=== PATIENT | male | born 1965 | race Two or more races ===

== ENCOUNTER → 2025-01-05 | Outpatient (CLI) | payer BC, SELFPAY ==
[2025-01-05 09:32] LABS: Basophils # (Auto) 0.1 Thou/mm3 (0.0-0.2); Basophils % (Auto) 1 % (0-2.5); Eosinophils # (Auto) 0.1 Thou/mm3 (0.0-0.5); Eosinophils % (Auto) 2 % (0-10); Hematocrit 36.8 % (41.0-53.0); Hemoglobin 12.9 g/dL (13.5-16.0); Immature Granulocytes % (Auto) 0 % (0-0); Immature Granulocytes Auto 0.02 Thou/mm3 (0.00-0.00); Lymphocytes # (Auto) 1.1 Thou/mm3 (1.0-4.8); Lymphocytes % (Auto) 18 % (10-50); Mean Corpuscular HGB Conc 35.1 g/dl (31.0-37.0); Mean Corpuscular Volume 89 fL (80-100); Monocytes # (Auto) 0.6 Thou/mm3 (0.0-0.8); Monocytes % (Auto) 9 % (0-12); Neutrophils # (Auto) 4.3 Thou/mm3 (1.8-7.7); Neutrophils % (Auto) 70 % (37-80); Nucleated Red Blood Cell % 0 /100 WBC (0); Platelet Count 198 Thou/mm3 (140-440); RDW Standard Deviation 42.7 fL (35.1-43.9); Red Blood Count 4.16 Miln/mm3 (4.50-5.90); White Blood Count 6.2 Thou/mm3 (3.8-10.6)
[2025-01-05 09:43] LABS: Collection Type, Urine Clean Catch
[2025-01-05 09:49] LABS: Prostate Specific Antigen 0.28 ng/mL (0-4.00)
[2025-01-05 10:05] LABS: Bilirubin,Urine Negative (Negative); Blood,Urine Negative (Negative); Clarity,Urine Clear (Clear/Hazy); Color,Urine Lt-Yellow (Lt Yel-Yel); Culture Indicated,Urine Not Indicated; Glucose, Urine Negative (Negative); Ketones,Urine Negative (Negative); Leukocyte Esterase,Urine Negative (Negative); Nitrite,Urine Negative (Negative); Protein,Urine Negative (Neg - Trace); RBC,Urine 1 /hpf (0-3); Specific Gravity,Urine 1.015 (1.001-1.035); Squamous Epithelial Cell,Urine < 1 /hpf (0-5); Urobilinogen,Urine Negative mg/dL (0.0-1.0); WBC,Urine < 1 /hpf (0-5)
[2025-01-05 10:09] LABS: Alanine Aminotransferase 18 U/L (10-49); Albumin, Serum 4.6 gm/dL (3.4-4.8); Albumin/Globulin Ratio 1.8 (1.2-2.2); Anion Gap 8 (7-16); Aspartate Amino Transferase 20 U/L (0-34); BUN/Creatinine Ratio 21 Ratio (12-20); Bilirubin,Total 0.3 mg/dL (0.3-1.2); Blood Urea Nitrogen 23 mg/dL (9-23); Calcium 9.7 mg/dL (8.3-10.6); Calcium (Corrected) 9.7 mg/dL (8.5-10.1); Carbon Dioxide 29.6 mMol/L (20.0-31.0); Cardiac Risk Estimate 5.6 RATIO (4.0-6.7); Chloride 101 mMol/L (98-107); Cholesterol 174 mg/dL (132-200); Creatinine (Component) 1.1 mg/dL (0.6-1.3); Globulin 2.5 gm/dL (2.3-3.5); Glucose 114 mg/dL (74-106); HDL Cholesterol 31 mg/dL (40-60); LDL Cholesterol,Calculated 102 mg/dL (0-130); Osmolality,Calculated 282 (275-295); Potassium 4.5 mMol/L (3.4-5.1); Sodium 139 mMol/L (136-145); Thyroid Stimulating Hormone 0.63 uIU/mL (0.55-4.78); Total Protein 7.1 gm/dL (5.7-8.2); Triglycerides 206 mg/dL (30-150); eGFR > 60 See Note
[2025-01-05 10:18] LABS: Creatinine MALB Rnd Ur 73 mg/dL (30-125); Microalbumin, Random Urine < 3 mg/L (0-300)
[2025-01-05 10:20] LABS: Alkaline Phosphatase 128 U/L (46-116)
== END | disposition home or self-care (01) ==
LOC: COPL 08:54
PROVIDERS: PCP Family Medicine; Referring Provider Family Medicine; Visit Provider Family Medicine
DX: Z00.00 Encounter for general adult medical examination without abnormal findings (principal); I10 Essential (primary) hypertension; N41.9 Inflammatory disease of prostate, unspecified; Z13.0 Encounter for screening for diseases of the blood and blood-forming organs and certain disorders involving the immune mechanism; Z13.29 Encounter for screening for other suspected endocrine disorder; Z13.21 Encounter for screening for nutritional disorder; Z13.220 Encounter for screening for lipoid disorders; Z13.1 Encounter for screening for diabetes mellitus
CPT/HCPCS: 36415; 80053; 80061; 81001; 82043; 82306; 82570; 84153; 84443; 85025

== ENCOUNTER → 2025-01-14 | Outpatient (CLI) | payer BC, SELFPAY ==
[2025-01-14 12:17] LABS: Glucose, 2 Hour PP 92 mg/dL (50-119)
== END | disposition home or self-care (01) ==
LOC: COPL 11:25
PROVIDERS: PCP Family Medicine; Referring Provider Family Medicine; Visit Provider Family Medicine
DX: R73.9 Hyperglycemia, unspecified (principal)
CPT/HCPCS: 36415; 82947

== ENCOUNTER 2025-02-10 06:25 | Day surgery (SDC) | payer BC, SELFPAY ==
--- NOTE | 2025-02-04 07:37 | EKG_ITS ---
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
[2025-02-04 10:22] VITALS: BMI 32.8
[2025-02-04 11:19] LABS: Basophils % (Auto) 1 % (0-2.5); Eosinophils # (Auto) 0.1 Thou/mm3 (0.0-0.5); Eosinophils % (Auto) 1 % (0-10); Hematocrit 36.5 % (41.0-53.0); Hemoglobin 12.6 g/dL (13.5-16.0); Immature Granulocytes % (Auto) 0 % (0-0); Immature Granulocytes Auto 0.02 Thou/mm3 (0.00-0.00); Lymphocytes # (Auto) 1.4 Thou/mm3 (1.0-4.8); Lymphocytes % (Auto) 21 % (10-50); Mean Corpuscular HGB Conc 34.5 g/dl (31.0-37.0); Mean Corpuscular Hemoglobin 30.4 pg (25.0-35.0); Mean Corpuscular Volume 88 fL (80-100); Monocytes # (Auto) 0.6 Thou/mm3 (0.0-0.8); Monocytes % (Auto) 9 % (0-12); Neutrophils # (Auto) 4.4 Thou/mm3 (1.8-7.7); Neutrophils % (Auto) 67 % (37-80); Nucleated Red Blood Cell % 0 /100 WBC (0); Platelet Count 205 Thou/mm3 (140-440); RDW Standard Deviation 42.2 fL (35.1-43.9); Red Blood Count 4.14 Miln/mm3 (4.50-5.90); White Blood Count 6.6 Thou/mm3 (3.8-10.6)
[2025-02-04 11:58] LABS: Alanine Aminotransferase 18 U/L (10-49); Albumin, Serum 4.5 gm/dL (3.4-4.8); Albumin/Globulin Ratio 1.6 (1.2-2.2); Alkaline Phosphatase 118 U/L (46-116); Anion Gap 9 (7-16); Aspartate Amino Transferase 20 U/L (0-34); BUN/Creatinine Ratio 18 Ratio (12-20); Bilirubin,Total 0.5 mg/dL (0.3-1.2); Blood Urea Nitrogen 20 mg/dL (9-23); Calcium 9.8 mg/dL (8.3-10.6); Calcium (Corrected) 9.8 mg/dL (8.5-10.1); Chloride 101 mMol/L (98-107); Creatinine (Component) 1.1 mg/dL (0.6-1.3); Estimated Creatinine Clearance 78.5 mL/min (>60); Globulin 2.8 gm/dL (2.3-3.5); Glucose 116 mg/dL (74-106); Osmolality,Calculated 279 (275-295); Potassium 4.2 mMol/L (3.4-5.1); Sodium 138 mMol/L (136-145); Total Protein 7.3 gm/dL (5.7-8.2); eGFR > 60 See Note
--- NOTE | 2025-02-09 14:27 | SUR.PREOP ---
Pt's notified to bring pt at 0630 for surgery tomorrow.
[2025-02-10] VITALS (8 sets, daily range): BP systolic 91–137; BP diastolic 53–84; PULSE 53–66; RESP 12–20; TEMP 36.7–37.2; O2SAT 95–100; BMI 33.2
--- NOTE | 2025-02-10 10:13 | SUR.PHASEI ---
1013: Pt. arrived with oral airway in place, vitals stable, breathing unlabored, no signs of distress, dressing to lower ABD CDI, no active bleed noted, report received from MD Acosta and Rahul PEREZ.
--- NOTE | 2025-02-10 10:17 | ESOP_ITS ---
Date of Procedure 02/10/25 Pre Op Diagnosis Bilateral inguinal hernia Post Op Diagnosis Bilateral direct inguinal hernias Procedure Repair of bilateral inguinal hernias with mesh Findings Patient was noted to have bilateral, direct inguinal hernias Procedure Description Patient brought into the operating room in supine position. After admi nistration of general endotracheal anesthesia, patient's bilateral groins were shaved, prepped and draped in standard surgical manner. The procedure started on the patient's right side first. The right inguinal crease was anesthetized with half percent Marcaine. An approximately 8 cm incision was made and dissection was carried to subcutaneous tissue. The Christopher's fascia was divided and the external oblique aponeurosis was opened towards the external ring. The hernia sac and the spermatic cord structures were from the posterior aspect of the external oblique aponeurosis at the level of pubic tubercle. The hernia sac was then meticulously dissected off the spermatic cord structures at the level of internal ring. Patient was noted to have direct right inguinal hernia defect. The defect was primarily closed with interrupted [id number] sutures using 0 Vicryl. The floor of inguinal canal was then reconstructed with ultra Pro proceed mesh. The mesh was secured with running 2-0 Prolene suture. The mesh secured medially to the pubic tubercle, superiorly into the conjoin tendon, inferiorly and to the shelving edge of inguinal ligament, the mesh was placed around the cord structures and tacked under the external oblique aponeurosis laterally. The area was copiously and thoroughly washed and irrigated, all the fluids were suctioned and the suction fluid returned clear. Hemostasis was adequate and satisfactory. External oblique aponeurosis was closed with running 2-0 Vicryl suture, and Christopher's fascia was closed with interrupted suture using 3-0 Vicryl. The incision was closed with 4-0 Monocryl in subcutaneous fashion. I then turned my attention to patient's left side. Patient was noted to have direct left inguinal hernia defect. The procedure was performed similar to the right. Both incisions were covered with Dermabond and then dry pressure dressings. Instruments, needles and sponge counts were reported to be correct ?2. Patient tolerated the procedure well. He was extubated, breathing spontaneously and without difficulty and was transferred to postanesthesia care in stable condition. Anesthesia GETA and local Pathology / specimen None Estimated Blood Loss 15 Condition Stable Disposition PACU Surgeon Villa Griffin MD Surgical Staff Operation Date: 02/10/25 08:30 Case Staff Anesthesiologist: Lexx Acosta RN First Assistant: Sil Vaughn
[2025-02-10] MEDS: ACETAMINOPHEN IVPB 1,000 MG/100 ML VIAL 250 MG IV (10:31)
[2025-02-10] MEDS: fentaNYL CIT INJ 50 mCg/ML AMP 2ML 25 MCG IV (10:31)
[2025-02-10] MEDS: HYDROmorphone INJ 2 MG/ML VIAL 0.4 MG IV ×3 (10:41→10:54)
--- NOTE | 2025-02-10 11:15 | SUR.PHASEII ---
1115: Pt. AAOx4, vitals stable, breathing unlabored, no complaint of pain or nausea, dressing to lower ABD CDI, ABD Binder in place, pt. tolerated sips of water well, pt. ambulated to wheelchair with steady gait and no assist, no complications. Pt. tolerated sips of water well, pt. ambulated to wheelchair with steady gait and no assist, no complications. Gave discharge instructions to the pt. and her ride, both verbalized understanding and had no further questions. Pt. left with all personal belongings.
== END 2025-02-10 11:15 | disposition home or self-care (01) ==
PROVIDERS: Anesthesiology; PCP Family Medicine; Referring Provider Surgery; Visit Provider Surgery
PROC: (CPT 49505; principal; 2025-02-10 08:30)
DX: K40.20 Bilateral inguinal hernia, without obstruction or gangrene, not specified as recurrent (principal); Z01.810 Encounter for preprocedural cardiovascular examination
CPT/HCPCS: 49505; 36415; 80053; 85025; 93005; A4217; A4649; C1781; J0131; J0690; J1100; J1885; J2250; J2405; J2704; J3010; J3490

== ENCOUNTER → 2025-07-25 | Outpatient (CLI) | payer BC, SELFPAY ==
[2025-07-25 10:56] LABS: Basophils # (Auto) 0.1 Thou/mm3 (0.0-0.2); Basophils % (Auto) 1 % (0-2.5); Eosinophils # (Auto) 0.1 Thou/mm3 (0.0-0.5); Eosinophils % (Auto) 2 % (0-10); Hematocrit 36.2 % (41.0-53.0); Hemoglobin 11.9 g/dL (13.5-16.0); Immature Granulocytes Auto 0.02 Thou/mm3 (0.00-0.00); Lymphocytes # (Auto) 1.1 Thou/mm3 (1.0-4.8); Lymphocytes % (Auto) 17 % (10-50); Mean Corpuscular HGB Conc 32.9 g/dl (31.0-37.0); Mean Corpuscular Hemoglobin 27.9 pg (25.0-35.0); Mean Corpuscular Volume 85 fL (80-100); Monocytes # (Auto) 0.5 Thou/mm3 (0.0-0.8); Monocytes % (Auto) 8 % (0-12); Neutrophils # (Auto) 4.5 Thou/mm3 (1.8-7.7); Neutrophils % (Auto) 72 % (37-80); Nucleated Red Blood Cell # 0.00 Thou/mm3 (0.00-0.00); Nucleated Red Blood Cell % 0 /100 WBC (0); Platelet Count 265 Thou/mm3 (140-440); RDW Standard Deviation 43.8 fL (35.1-43.9); Red Blood Count 4.27 Miln/mm3 (4.50-5.90); White Blood Count 6.2 Thou/mm3 (3.8-10.6)
[2025-07-25 11:04] LABS: INR 1.0 (0.9-1.3); Partial Thromboplastin Time 22.8 Seconds (22.0-36.0); Prothrombin Time 11.0 Seconds (9.0-12.2)
== END | disposition home or self-care (01) ==
LOC: COPL 09:56
PROVIDERS: PCP Family Medicine; Referring Provider Internal Medicine Gastroenterology; Visit Provider Internal Medicine Gastroenterology
DX: R10.9 Unspecified abdominal pain (principal)
CPT/HCPCS: 36415; 85025; 85610; 85730

== ENCOUNTER → 2025-08-26 | Outpatient (CLI) | payer BC, SELFPAY ==
[2025-08-26 09:33] LABS: Basophils # (Auto) 0.0 Thou/mm3 (0.0-0.2); Basophils % (Auto) 0 % (0-2.5); Eosinophils # (Auto) 0.1 Thou/mm3 (0.0-0.5); Eosinophils % (Auto) 1 % (0-10); Hematocrit 37.4 % (41.0-53.0); Hemoglobin 12.3 g/dL (13.5-16.0); Immature Granulocytes Auto 0.02 Thou/mm3 (0.00-0.00); Lymphocytes # (Auto) 0.8 Thou/mm3 (1.0-4.8); Lymphocytes % (Auto) 11 % (10-50); Mean Corpuscular HGB Conc 32.9 g/dl (31.0-37.0); Mean Corpuscular Hemoglobin 27.5 pg (25.0-35.0); Mean Corpuscular Volume 84 fL (80-100); Monocytes # (Auto) 0.6 Thou/mm3 (0.0-0.8); Monocytes % (Auto) 8 % (0-12); Neutrophils # (Auto) 6.2 Thou/mm3 (1.8-7.7); Neutrophils % (Auto) 80 % (37-80); Nucleated Red Blood Cell # 0.00 Thou/mm3 (0.00-0.00); Nucleated Red Blood Cell % 0 /100 WBC (0); Platelet Count 344 Thou/mm3 (140-440); RDW Standard Deviation 41.8 fL (35.1-43.9); Red Blood Count 4.48 Miln/mm3 (4.50-5.90); White Blood Count 7.8 Thou/mm3 (3.8-10.6)
[2025-08-26 09:56] LABS: INR 1.1 (0.9-1.3); Partial Thromboplastin Time 25.2 Seconds (22.0-36.0); Prothrombin Time 11.4 Seconds (9.0-12.2)
[2025-08-26 10:09] LABS: Alanine Aminotransferase 9 U/L (10-49); Albumin, Serum 4.5 gm/dL (3.4-4.8); Albumin/Globulin Ratio 1.7 (1.2-2.2); Alkaline Phosphatase 98 U/L (46-116); Amylase 58 U/L (30-118); Anion Gap 11 (7-16); Aspartate Amino Transferase 18 U/L (0-34); BUN/Creatinine Ratio 13 Ratio (12-20); Bilirubin,Total 0.7 mg/dL (0.3-1.2); Blood Urea Nitrogen 22 mg/dL (9-23); Calcium 9.5 mg/dL (8.3-10.6); Calcium (Corrected) 9.5 mg/dL (8.5-10.1); Carbon Dioxide 28.3 mMol/L (20.0-31.0); Chloride 99 mMol/L (98-107); Creatinine (Component) 1.7 mg/dL (0.6-1.3); Globulin 2.6 gm/dL (2.3-3.5); Glucose 121 mg/dL (74-106); Lipase 19 U/L (12-53); Osmolality,Calculated 279 (275-295); Potassium 4.5 mMol/L (3.4-5.1); Sodium 138 mMol/L (136-145); Total Protein 7.1 gm/dL (5.7-8.2); eGFR 45 See Note
== END | disposition home or self-care (01) ==
LOC: COPL 09:04
PROVIDERS: PCP Family Medicine; Referring Provider Internal Medicine Gastroenterology; Visit Provider Internal Medicine Gastroenterology
DX: R10.9 Unspecified abdominal pain (principal)
CPT/HCPCS: 36415; 80053; 82150; 83690; 85025; 85610; 85730

== ENCOUNTER → 2025-08-29 | Outpatient (CLI) | payer BC, SELFPAY ==
[2025-08-29 10:21] LABS: Misc Send Out* See Sep Rpt
[2025-08-29 11:46] LABS: Carcinoembryonic Antigen 1.2 ng/mL (0.0-5.0)
== END | disposition home or self-care (01) ==
LOC: COPL 09:49
PROVIDERS: PCP Family Medicine; Referring Provider Internal Medicine Gastroenterology; Visit Provider Internal Medicine Gastroenterology
DX: R10.9 Unspecified abdominal pain (principal); R97.0 Elevated carcinoembryonic antigen [CEA]; R97.8 Other abnormal tumor markers
CPT/HCPCS: 36415; 82378

== ENCOUNTER → 2025-08-30 | Outpatient (CLI) | payer BC, SELFPAY ==
[2025-08-30 09:50] LABS: Misc Send Out* See Sep Rpt
== END | disposition home or self-care (01) ==
LOC: SLDO 09:39
PROVIDERS: Referring Provider Internal Medicine Gastroenterology; Visit Provider Internal Medicine Gastroenterology
DX: R10.9 Unspecified abdominal pain (principal); R97.8 Other abnormal tumor markers; R97.0 Elevated carcinoembryonic antigen [CEA]
CPT/HCPCS: 83497

== ENCOUNTER → 2025-09-06 | Outpatient (CLI) | payer BC, SELFPAY ==
[2025-09-06 13:51] LABS: Misc Send Out* See Sep Rpt
== END | disposition home or self-care (01) ==
LOC: COPL 13:32
PROVIDERS: PCP Family Medicine; Referring Provider Internal Medicine Gastroenterology; Visit Provider Internal Medicine Gastroenterology
DX: R10.9 Unspecified abdominal pain (principal)
CPT/HCPCS: 86316

== ENCOUNTER → 2025-09-07 | Outpatient (CLI) | payer BC, SELFPAY ==
[2025-09-12 07:00] LABS: CA 19-9 Antigen* 60 U/mL (<34)
== END | disposition home or self-care (01) ==
PROVIDERS: PCP Family Medicine; Referring Provider Internal Medicine Gastroenterology; Visit Provider Internal Medicine Gastroenterology
DX: R10.9 Unspecified abdominal pain (principal); R97.8 Other abnormal tumor markers
CPT/HCPCS: 36415; 86301

== ENCOUNTER → 2025-09-09 | Outpatient (CLI) | payer BC, SELFPAY ==
[2025-09-09 15:43] LABS: Misc Send Out* See Sep Rpt
== END | disposition home or self-care (01) ==
LOC: SLDO 15:36
PROVIDERS: PCP Internal Medicine Gastroenterology; Referring Provider Internal Medicine Gastroenterology; Visit Provider Internal Medicine Gastroenterology
DX: R10.9 Unspecified abdominal pain (principal)
CPT/HCPCS: 83497

== ENCOUNTER 2025-10-17 12:16 | Emergency (ER) | payer BC, SELFPAY ==
[2025-10-17] VITALS (7 sets, daily range): BP systolic 82–102; BP diastolic 63–69; PULSE 57–72; RESP 12–20; TEMP 35.6–36.4; O2SAT 95–99; BMI 25.7
--- NOTE | 2025-10-17 12:44 | EKG_ITS ---
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
--- NOTE | 2025-10-17 12:54 | EDNOTE_ITS ---
ED Abdominal Pain RME/HPI General Chief Complaint: Abdominal Pain Stated complaint: ABD PAIN Time seen by provider: 10/17/25 12:47 Arrival date/time: 10/17/25 12:16 RME / HPI RME / HPI narrative: 60 year old male with history of hypertension, s/p pancreas biopsy on 09/28/2025, and diagnosed with pancreatic cancer on 10/12/[address] Cool at [facility] presents to the ED BIBA from home for evaluation of abdominal pain today. States the pain began 2 week ago though worsening in severity today. Described as aching in sensation that is located diffusely, rating 10/10 in severity. Reportedly attempted taking [place] at home that was prescribed by his oncologist that he shortly after vomited. States his pain is accompanied by nausea, vomiting, and decreased appetite. Denies fevers, chills, sweats, or urinary symptoms. Dr. Cool at [facility] and [facility] Related Data Home Medications ?Medication ?Instructions ?Recorded ?Confirmed amlodipine 10 mg tablet 10 mg PO DAILY 02/04/2501/09 hydrochlorothiazide 25 mg tablet 25 mg PO QAM 02/04/25 02/04/25 metoprolol succinate 200 mg 200 mg PO DAILY 02/04/25 0 02/04/25 tablet,extended release 24 hr Previous Rx's ?Medication ?Instructions ?Recorded docusate sodium 100 mg capsule 100 mg PO BID #60 caps 02/10/25 (Colace) hydrocodone 5 mg-acetaminophen 325 1 tab PO Q6H PRN pa in (scale score 02/10/25 mg tablet 7-10) #30 tabs hydromorphone 2 mg tablet 2 mg PO Q4H PRN pain #30 tab s 10/17/25 (Dilaudid) metoclopramide HCl 10 mg tablet 10 mg PO Q6H PRN nause a and 10/17/25 (Reglan) vomiting #20 tabs Allergies Allergy/AdvReac Type Severity Reaction Status Date / Time ibuprofen Allergy Vomiting Verified 10/17/25 12:24 Penicillins Allergy Anxiety Verified 10/17/25 12:24 Review of Systems Review of Systems Systems Reviewed: All systems reviewed, normal except as documented Past Medical History Past Medical History CARDIAC: Positive Cardiac Disorders and Hypertension GASTROINTESTINAL: Positive Gastrointestinal Disorders and Obesity GENITOURINARY: Positive Inguinal Hernia HEMATOLOGIC: Positive Blood Disorders and Anemia OTHER HISTORY: Positive Shingles and Chicken Pox Family History FAMILY HISTORY: Positive Family Cardiac Disorders Surgical History SURGICAL: Positive Tonsillectomy Social History SMOKING STATUS: Never smoker ED Exam Narrative Physical exam: Generally patient is alert in moderate distress secondary to abdominal pain, heart regular rate and rhythm, lungs clear to auscultation equal bilaterally, abdomen is distended nontympanic with guarding and diffusely tender without obvious rebound, extremities show no edema, neurologic exam shows [place] Coma Scale 15 without focal motor deficit Course Quality Measures none Orders Category Date Time Status CT Screening NOW Care 10/17/25 12:55 Active Cardiac Cath Technician Q4H START 00 Care 10/17/25 12:25 Active EKG (ED ONLY) *Do not use* NOW Care 10/17/25 12:44 Completed IV [Insert IV] NOW Care 10/17/25 12:[address] abdomen pelvis wo con Stat Exams 10/17/25 13:38 Completed EKG (ED Only) Stat Exams 10/17/25 12:44 Draft CBC Stat Lab 10/17/25 12:48 Completed CMP [Comprehensive Metabolic Panel] Stat Lab 10/17/25 12:48 Completed Lipase Stat Lab 10/17/25 12:48 Completed Urinalysis Stat Lab 10/17/25 15:36 Completed Urine Culture Stat Lab 10/17/25 15:36 Received HYDROmorphone INJ [Dilaudid Inj] Med 10/17/25 12:55 Discontinued 1 mg IVP X1 ONE HYDROmorphone INJ [Dilaudid Inj] Med 10/17/25 14:30 Discontinued 1 mg IVP X1 ONE Sodium Chloride 0.9% 1000 ml [Ns] 1,000 ml Med 10/17/25 13:10 Discontinued IV 999 mls/hr Sodium Chloride 0.9% 1000 ml [Ns] 1,000 ml Med 10/17/25 13:18 Discontinued IV 999 mls/hr Sodium Chloride 0.9% 1000 ml [Ns] 1,000 ml Med 10/17/25 13:38 Discontinued IV 999 mls/hr Vital Signs Vital signs: Vital Signs Pulse Rate 68 10/17/25 12:18 Respiratory Rate 14 10/17/25 12:18 Blood Pressure 93/63 10/17/25 12:18 Pulse Oximetry (%) 96 10/17/25 12:18 Oxygen Delivery Method Room Air 10/17/25 12:18 Pulse ox is 96% on room air which is adequate. Abdominal Pain MDM MDM Narrative MDM Narrative:: Velia Grimaldo am scribing for and in the presence of Dr. Gonsales. Patient is dehydrated with renal insufficiency. There is no electrolyte abnormality. Patient was hydrated with 3 L of IV normal saline. Pain was controlled with Dilaudid 1 mg IV x 2 here in the emergency room. Patient has been using hydroxy codon at home for pain without benefit. He has had marked benefit with Dilaudid. The biopsy of the pancreas was [address] scan done of the abdomen pelvis without contrast because of the renal insufficiency showed no obstruction but did show ascites and bilateral pleural effusions left side greater than right. Patient has an appointment with his oncologist in 4 days. He is to take the Dilaudid and Reglan as prescribed. Encourage hydration. Return to ER as needed or if condition worsens. Vital signs are completely stable at time of discharge. Plan was discussed with the patient and family member at bedside and agreeable to all parties. Patient data External records reviewed:: [facility] previous records and EMS form Clinical information provided by:: patient and EMS Social determinants that could affect healthcare access:: none Patient has the following chronic illnesses:: hypertension, s/p pancreas biopsy on 09/28/2025, and diagnosed with pancreatic cancer on 10/12/[address] Cool at [facility] How is presenting disease/condition affected by chronic disease/condition?: exacerbated by Evaluation data The following diagnostics were reviewed and interpreted by me:: lab results and radiology exam(s) Lab and/or radiology exams considered but not ordered:: None Interpretation Summary: Ordering Physician: Josep Gonsales DO Date of Service: 10/17/25 Procedure(s): CT abdomen pelvis wo con Accession Number(s): [id number] cc: Alessio Todd MD; Josep Gonsales DO~ Examination: CT abdomen and pelvis without contrast. Coronal 3-D reconstructions. Sagittal 2-D reconstructions. Date and time of exam: October 17, 2025, 1508 hours INDICATIONS: Generalized abdominal pain today CTDI: vol (mGy): 7.89 DLP: (mGycm): 496 Technique: Axial images of the abdomen have been obtained, 3 mm slice thickness Intravenous contrast material has not been administered. Low dose protocols were performed. One or more of the following dose reduction techniques were used; automated exposure control, adjustment of the mA and/or KV according to patient size, use of iterative reconstruction technique. Findings: Large left mild right pleural fluid Atelectasis and/or pneumonia left base Cirrhosis, liver nodular in contour Significant ascites Hyperdense gallbladder Spleen is not enlarged Suspicious for esophageal varices on this noncontrast study No pancreatic mass No renal or ureteral calculi, no hydronephrosis Aorta normal size No bowel obstruction Urinary bladder intact Mild prostatomegaly Advanced disc narrowing L5-S1 IMPRESSION: Large left mild right pleural fluid Atelectasis versus pneumonia left base Cirrhosis Hyperdense gallbladder, recommend gallbladder sonography follow-up Suspicious for esophageal varices on this noncontrast study Significant ascites Dictated By: Alessio Todd MD Signed By: <Electronically signed by Alessio Todd MD in OV> 10/17/25 1523 Medications / Prescriptions Medications or Prescriptions considered but not ordered:: None Medication administrations:: Medication Administration History Discontinued Medications Hydromorphone HCl (Hydromorphone Inj 2 Mg/Ml Vial) 1 mg IVP X1 ONE Stop: 10/17/25 12:56 Last Admin: 10/17/25 13:13 Dose: 1 mg Documented By: TRUPTI Hydromorphone HCl (Hydromorphone Inj 2 Mg/Ml Vial) 1 mg IVP X1 ONE Stop: 10/17/25 14:31 Last Admin: 10/17/25 14:48 Dose: 1 mg Documented By: TRUPTI Sodium Chloride (Ns) 1,000 mls @ 999 mls/hr IV .Q1H1M ONE Stop: 10/17/25 14:10 Last Infusion: 10/17/25 13:55 Dose: Infused Documented By: Admin: 10/17/25 13:15 Dose: 999 mls/hr Documented By: TRUPTI Sodium Chloride (Ns) 1,000 mls @ 999 mls/hr IV .Q1H1M ONE Stop: 10/17/25 14:18 Last Infusion: 10/17/25 15:22 Dose: Infused Documented By: Admin: 10/17/25 13:57 Dose: 999 mls/hr Documented By: ARTURO Sodium Chloride (Ns) 1,000 mls @ 999 mls/hr IV .Q1H1M ONE Stop: 10/17/25 14:38 Last Infusion: 10/17/25 15:22 Dose: Infused Documented By: Admin: 10/17/25 13:56 Dose: 999 mls/hr Documented By: ARTURO See above Consultations Consultation(s) initiated? (list below): No Diagnosis Differential diagnosis abdominal pain: abdominal pain, pancreatitis, small bowel obstruction and other (pancreatic cancer ) Most likely diagnosis given after review of the tests above:: None Admission Indicated Admission indicated?: not indicated Admission Request Was there a request for admission?: No Disposition Plan Disposition Plan: Discharge Discharge Attestation Discharge Attestation: The patient and all family members were given an opportunity to ask questions and understood the discharge instructions. Discharge instructions specifically effects, indications for sooner follow up or return to the emergency department, and the expected course of current diagnosis. Patient condition: Stable Discharge Plan Plan Patient Disposition: HOME (Self Care) Prescriptions/Referrals Prescriptions/Med Rec: New hydromorphone [Dilaudid] 2 mg tablet 2 mg PO Q4H MDD 6 PRN (Reason: pain) Qty: 30 0RF metoclopramide HCl [Reglan] 10 mg tablet 10 mg PO Q6H PRN (Reason: nausea and vomiting) Qty: 20 0RF No Action amlodipine 10 mg tablet 10 mg PO DAILY metoprolol succinate 200 mg tablet extended release 24 hr 200 mg PO DAILY hydrochlorothiazide 25 mg tablet 25 mg PO QAM docusate sodium [Colace] 100 mg capsule 100 mg PO BID Qty: 60 0RF hydrocodone-acetaminophen 5-325 mg tablet 1 tab PO Q6H MDD 4 PRN (Reason: pain (scale score 7-10)) Qty: 30 0RF Referrals: Rc (PCP)Enrico MD [Primary Care Provider, Family Practice] - In 1 week Problem List Clinical Impression: Abdominal pain, Acute renal insufficiency Patient/Caregiver Discharge Instructions Education Materials: Abdominal Pain Additional Instructions: Stop your current pain medication. Take the medication as prescribed. Keep your follow-up appointment with your oncologist in 4 days. Return to ER as needed or if condition worsens. Encourage hydration. Print Language: Mohawk Stand Alone Forms: Mary Award Info., Patient Portal Info Letter
[2025-10-17 13:05] LABS: Basophils # (Auto) 0.0 Thou/mm3 (0.0-0.2); Basophils % (Auto) 0 % (0-2.5); Eosinophils # (Auto) 0.0 Thou/mm3 (0.0-0.5); Eosinophils % (Auto) 0 % (0-10); Hematocrit 34.7 % (41.0-53.0); Hemoglobin 11.6 g/dL (13.5-16.0); Immature Granulocytes Auto 0.01 Thou/mm3 (0.00-0.00); Lymphocytes # (Auto) 1.0 Thou/mm3 (1.0-4.8); Lymphocytes % (Auto) 13 % (10-50); Mean Corpuscular HGB Conc 33.4 g/dl (31.0-37.0); Mean Corpuscular Hemoglobin 26.9 pg (25.0-35.0); Mean Corpuscular Volume 81 fL (80-100); Monocytes # (Auto) 0.6 Thou/mm3 (0.0-0.8); Monocytes % (Auto) 8 % (0-12); Neutrophils # (Auto) 5.8 Thou/mm3 (1.8-7.7); Neutrophils % (Auto) 78 % (37-80); Nucleated Red Blood Cell # 0.00 Thou/mm3 (0.00-0.00); Nucleated Red Blood Cell % 0 /100 WBC (0); Platelet Count 353 Thou/mm3 (140-440); RDW Standard Deviation 41.1 fL (35.1-43.9); Red Blood Count 4.31 Miln/mm3 (4.50-5.90); White Blood Count 7.5 Thou/mm3 (3.8-10.6)
[2025-10-17] MEDS: HYDROmorphone INJ 2 MG/ML VIAL 1 MG IVP ×2 (13:13→14:48)
[2025-10-17] MEDS: SODIUM CHLORIDE 0.9% 1000 ML 1,000 ML 999 ML IV ×3 (13:15→13:57)
[2025-10-17 13:25] LABS: Alanine Aminotransferase 10 U/L (10-49); Albumin, Serum 3.6 gm/dL (3.4-4.8); Albumin/Globulin Ratio 1.4 (1.2-2.2); Alkaline Phosphatase 81 U/L (46-116); Anion Gap 13 (7-16); Aspartate Amino Transferase 15 U/L (0-34); BUN/Creatinine Ratio 25 Ratio (12-20); Bilirubin,Total 0.3 mg/dL (0.3-1.2); Blood Urea Nitrogen 57 mg/dL (9-23); Calcium 8.7 mg/dL (8.3-10.6); Calcium (Corrected) 9.0 mg/dL (8.5-10.1); Carbon Dioxide 24.2 mMol/L (20.0-31.0); Chloride 99 mMol/L (98-107); Creatinine (Component) 2.3 mg/dL (0.6-1.3); Estimated Creatinine Clearance 32.6 mL/min (>60); Globulin 2.6 gm/dL (2.3-3.5); Glucose 137 mg/dL (74-106); Lipase 25 U/L (12-53); Osmolality,Calculated 289 (275-295); Potassium 3.8 mMol/L (3.4-5.1); Sodium 136 mMol/L (136-145); Total Protein 6.2 gm/dL (5.7-8.2); eGFR 32 See Note
--- NOTE | 2025-10-17 13:38 | XR_ITS ---
Examination: CT abdomen and pelvis without contrast. Coronal 3-D reconstructions. Sagittal 2-D reconstructions. Date and time of exam: October 17, 2025, 1508 hours INDICATIONS: Generalized abdominal pain today CTDI: vol (mGy): 7.89 DLP: (mGycm): 496 Technique: Axial images of the abdomen have been obtained, 3 mm slice thickness Intravenous contrast material has not been administered. Low dose protocols were performed. One or more of the following dose reduction techniques were used; automated exposure control, adjustment of the mA and/or KV according to patient size, use of iterative reconstruction technique. Findings: Large left mild right pleural fluid Atelectasis and/or pneumonia left base Cirrhosis, liver nodular in contour Significant ascites Hyperdense gallbladder Spleen is not enlarged Suspicious for esophageal varices on this noncontrast study No pancreatic mass No renal or ureteral calculi, no hydronephrosis Aorta normal size No bowel obstruction Urinary bladder intact Mild prostatomegaly Advanced disc narrowing L5-S1 IMPRESSION: Large left mild right pleural fluid Atelectasis versus pneumonia left base Cirrhosis Hyperdense gallbladder, recommend gallbladder sonography follow-up Suspicious for esophageal varices on this noncontrast study Significant ascites
[2025-10-17 15:44] LABS: Collection Type, Urine Clean Catch; Squamous Epithelial Cell,Urine 0 /hpf (0-5)
[2025-10-17 15:49] LABS: Bilirubin,Urine Negative (Negative); Blood,Urine Negative (Negative); Clarity,Urine Clear (Clear/Hazy); Color,Urine Lt-Yellow (Lt Yel-Yel); Glucose, Urine Negative (Negative); Hyaline Casts,Urine < 1 /hpf (0-1); Ketones,Urine Negative (Negative); Leukocyte Esterase,Urine Negative (Negative); Nitrite,Urine Negative (Negative); PH,Urine 5.5 (5.0-7.0); Protein,Urine Negative (Neg - Trace); RBC,Urine < 1 /hpf (0-3); Specific Gravity,Urine 1.016 (1.001-1.035); Urobilinogen,Urine Negative mg/dL (0.0-1.0); WBC,Urine 1 /hpf (0-5)
== END 2025-10-17 16:39 | disposition home or self-care (01) ==
PROVIDERS: Emergency Provider Emergency Medicine; PCP Family Medicine
DX: N28.9 Disorder of kidney and ureter, unspecified (principal); E86.0 Dehydration; K74.60 Unspecified cirrhosis of liver; R18.8 Other ascites; J94.8 Other specified pleural conditions; I10 Essential (primary) hypertension
CPT/HCPCS: 36415; 74176; 80053; 81001; 83690; 84484; 85025; 87086; 93005; 96361; 96374; 96375; 99284; J1171; J7030

== ENCOUNTER 2025-11-07 11:18 | Emergency (ER) | payer BC, SELFPAY ==
[2025-11-07 11:30] VITALS: PULSE 111; RESP 24; BMI 23.0
[2025-11-07 11:37] VITALS: BP 150/112; PULSE 98; RESP 21; TEMP 36.6; O2SAT 97
--- NOTE | 2025-11-07 12:00 | XR_ITS ---
Study: AP upright chest at 1212 hours 07 November 2025 INDICATION: 3 days of coughing. FINDINGS: There is a moderately large left pleural effusion. No left-sided or right-sided alveolar infiltrates are seen. The right pleural space is dry. There are no nodules or masses. The heart is normal in size and contour. The aortic knob is prominent. Peripheral vasculature is normal in volume. IMPRESSION: Prominent left pleural effusion.
--- NOTE | 2025-11-07 12:00 | EKG_ITS ---
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
[2025-11-07] MEDS: HYDROmorphone INJ 2 MG/ML VIAL 1 MG IVP ×2 (12:11→15:29)
[2025-11-07] MEDS: ONDANSETRON INJ 2 MG/ML INJ 2 ML 4 MG IVP ×2 (12:12→15:31)
[2025-11-07] MEDS: SODIUM CHLORIDE 0.9% 1000 ML 1,000 ML 999 ML IV (12:14)
[2025-11-07 12:15] VITALS: BP 159/105; PULSE 102; PULSE 108; PULSE 111; RESP 20; RESP 99; TEMP 36.6; O2SAT 98
--- NOTE | 2025-11-07 12:19 | PD.EDABDPN ---
ED Abdominal Pain RME/HPI General Chief Complaint: Abdominal Pain Stated complaint: ABD PAIN Time seen by provider: 11/07/25 11:25 Arrival date/time: 11/07/25 11:18 Limitations: no limitations RME / HPI RME / HPI narrative: 60 year old male with history of hypertension, s/p pancreas biopsy on 09/28/2025, and diagnosed with pancreatic cancer on 10/12/[address] Cool at [facility], presents to the ED BIBA from home for evaluation of abdominal pain today. Patient reports his pain is located throughout, rating 10/10 in severity. Accompanied by nausea and vomiting. Patient reports he has been prescribed Morphine for home and attempted to take a dose today which he did not tolerate. Per medics, patient was given 4mg Zofran with some improvement though on arrival is still complaining of feeling nauseated. No other associated symptoms reported. Related Data Home Medications ?Medication ?Instructions ?Recorded ?Confirmed amlodipine 10 mg tablet 10 mg PO DAILY 02/04/25 02/04/25 hydrochlorothiazide 25 mg tablet 25 mg PO QAM 02/04/25 02/04/25 metoprolol succinate 200 mg 200 mg PO DAILY 02/04/25 02/04/25 tablet,extended release 24 hr Previous Rx's ?Medication ?Instructions ?Recorded docusate sodium 100 mg capsule 100 mg PO BID #60 caps 02/10/25 (Colace) hydrocodone 5 mg-acetaminophen 325 1 tab PO Q6H PRN pain (scale score 02/10/25 mg tablet 7-10) #30 tabs hydromorphone 2 mg tablet 2 mg PO Q4H PRN pain #30 tabs 10/17/25 (Dilaudid) metoclopramide HCl 10 mg tablet 10 mg PO Q6H PRN nausea and 10/17/25 (Reglan) vomiting #20 tabs hydromorphone 2 mg tablet 2 mg PO Q6H PAIN #20 tabs 11/07/25 (Dilaudid) ondansetron HCl 4 mg tablet 4 mg PO Q8H 5 days #15 tabs 11/07/25 Allergies Allergy/AdvReac Type Severity Reaction Status Date / Time ibuprofen Allergy Vomiting Verified 11/07/25 11:37 Penicillins Allergy Anxiety Verified 11/07/25 11:37 Review of Systems Review of Systems Systems Reviewed: All systems reviewed, normal except as documented Past Medical History Past Medical History CARDIAC: Positive Hypertension GASTROINTESTINAL: Positive Gastrointestinal Disorders (h pylori) and Obesity GENITOURINARY: Positive Inguinal Hernia HEMATOLOGIC: Positive Anemia OTHER HISTORY: Positive Shingles, Chicken Pox and Cancer (pancreatic) Family History FAMILY HISTORY: Positive Family Cardiac Disorders Surgical History SURGICAL: Positive Tonsillectomy Social History SMOKING STATUS: Never smoker ED Exam Narrative Physical exam: upper abdomen 1+ tender, no mass appreciated General Limitations: Present no limitations General appearance: Present alert and other (thin male, in severe pain distress, pale, ) Head Head exam: Present atraumatic Eye Eye exam: Present normal appearance, PERRL and EOMI ENT ENT exam: Present normal exam, normal oropharynx and mucous membranes dry Neck Neck exam: Present normal inspection, full ROM and trachea midline Chest Chest inspection: Present normal inspection and symmetric chest wall rise Respiratory Respiratory exam: Present normal lung sounds bilaterally Cardiovascular Cardiovascular exam: Present regular rate, normal rhythm and normal heart sounds Abdominal Exam Abdominal exam: Present soft, tenderness (upper abdominal 1+ tenderness ) and normal bowel sounds; Absent guarding, rebound or rigidity Extremities Exam Extremities exam: Present normal inspection and full ROM Back Exam Back exam: Present normal inspection and full ROM Neurological Exam Neurological exam: Present alert, oriented X3 and CN II-XII intact Psychiatric Psychiatric exam: Present normal affect and normal mood Skin Skin exam: Present warm, dry, intact and normal color Course Quality Measures none Orders Category Date Time Status Logistics And Planning Manager NOW Care 11/07/25 12:00 Completed Continuous Pulse Oximetry NOW Care 11/07/25 12:00 Completed EKG (ED ONLY) *Do not use* NOW Care 11/07/25 12:00 Completed Insert IV NOW Care 11/07/25 11:43 Completed Insert IV NOW Care 11/07/25 12:00 Completed Referral Hospice Stat Cons 11/07/25 15:12 Active EKG (ED Only) Stat Exams 11/07/25 12:00 Draft XR chest 1V portable Stat Exams 11/07/25 12:00 Completed CBC Stat Lab 11/07/25 11:40 Completed Comprehensive Metabolic Panel Stat Lab 11/07/25 11:40 Completed HYDROmorphone INJ [Dilaudid Inj] Med 11/07/25 12:00 Discontinued 1 mg IVP X1 ONE HYDROmorphone INJ [Dilaudid Inj] Med 11/07/25 15:02 Discontinued 1 mg IVP X1 ONE Ondansetron Inj [Zofran Inj] Med 11/07/25 12:00 Discontinued 4 mg IVP X1 ONE Ondansetron Inj [Zofran Inj] Med 11/07/25 15:02 Discontinued 4 mg IVP X1 ONE Sodium Chloride 0.9% 1000 ml [Ns] 1,000 ml Med 11/07/25 12:00 Discontinued IV 999 mls/hr Oxygen Delivery NOW RT 11/07/25 12:00 Completed Referral Director Of Laboratory Operations NOW SS 11/07/25 14:52 Completed Vital Signs Vital signs: Vital Signs Temperature 97.9 F 11/07/25 11:37 Pulse Rate 98 11/07/25 11:37 Respiratory Rate 21 H 11/07/25 11:37 Blood Pressure 150/112 H 11/07/25 11:37 Pulse Oximetry (%) 97 11/07/25 11:37 Oxygen Delivery Method Room Air 11/07/25 11:37 Pulse ox is 97% on room air which is adequate. Abdominal Pain MDM MDM Narrative MDM Narrative:: Velia Grimaldo am scribing for and in the presence of Dr. Espinosa. Patient was given two doses of 1mg Dilaudid IV, Zofran, and IVF. We reviewed all the results, analysis, and treatment plans. Patient is amenable to discharge with hospice. account services manager has been consulted and will arranged for hospice care. Patient data External records reviewed:: [facility] previous records Clinical information provided by:: patient Social determinants that could affect healthcare access:: none Patient has the following chronic illnesses:: hypertension, s/p pancreas biopsy on 09/28/2025, and diagnosed with pancreatic cancer on 10/12/[address] Cool at [facility] How is presenting disease/condition affected by chronic disease/condition?: exacerbated by Evaluation data The following diagnostics were reviewed and interpreted by me:: lab results, radiology exam(s) and EKG tracing(s) (EKG @ 12:14, interpreted by me, sinus tachycardia, rate 109, no STEMI. ) Lab and/or radiology exams considered but not ordered:: None Interpretation Summary: Ordering Physician: Gavin Espinosa MD Date of Service: 11/07/25 Procedure(s): XR chest 1V portable Accession Number(s): [id number] cc: Gavin Espinosa MD; Enrico Dang MD; Otto Guidry MD~ Study: AP upright chest at 1212 hours 07 November 2025 INDICATION: 3 days of coughing. FINDINGS: There is a moderately large left pleural effusion. No left-sided or right-sided alveolar infiltrates are seen. The right pleural space is dry. There are no nodules or masses. The heart is normal in size and contour. The aortic knob is prominent. Peripheral vasculature is normal in volume. IMPRESSION: Prominent left pleural effusion. Dictated By: Otto Guidry MD Signed By: <Electronically signed by Otto Guidry MD in OV> 11/07/25 1301 Medications / Prescriptions Medications or Prescriptions considered but not ordered:: none Medication administrations:: Medication Administration History Discontinued Medications Hydromorphone HCl (Hydromorphone Inj 2 Mg/Ml Vial) 1 mg IVP X1 ONE Stop: 11/07/25 12:01 Last Admin: 11/07/25 12:11 Dose: 1 mg Documented By: LAZARO Hydromorphone HCl (Hydromorphone Inj 2 Mg/Ml Vial) 1 mg IVP X1 ONE Stop: 11/07/25 15:03 Last Admin: 11/07/25 15:29 Dose: 1 mg Documented By: LAZARO Sodium Chloride (Ns) 1,000 mls @ 999 mls/hr IV .Q1H1M ONE Stop: 11/07/25 13:00 Last Infusion: 11/07/25 13:15 Dose: Infused Documented By: Admin: 11/07/25 12:14 Dose: 999 mls/hr Documented By: LAZARO Ondansetron HCl (Ondansetron Inj 2 Mg/Ml Inj 2 Ml) 4 mg IVP X1 ONE; Protocol Stop: 11/07/25 12:01 Last Admin: 11/07/25 12:12 Dose: 4 mg Documented By: LAZARO Ondansetron HCl (Ondansetron Inj 2 Mg/Ml Inj 2 Ml) 4 mg IVP X1 ONE; Protocol Stop: 11/07/25 15:03 Last Admin: 11/07/25 15:31 Dose: 4 mg Documented By: LAZARO See above Consultations Consultation(s) initiated? (list below): No Diagnosis Differential diagnosis abdominal pain: abdominal pain, constipation, pancreatitis, small bowel obstruction and other (pancreatic cancer ) Most likely diagnosis given after review of the tests above:: Pancreatic cancer Chronic pain Admission Indicated Admission indicated?: not indicated Admission Request Was there a request for admission?: No Disposition Plan Disposition Plan: Discharge Discharge Attestation Discharge Attestation: The patient and all family members were given an opportunity to ask questions and understood the discharge instructions. Discharge instructions specifically effects, indications for sooner follow up or return to the emergency department, and the expected course of current diagnosis. Patient condition: Stable Discharge Plan Plan Patient Disposition: HOME (Self Care) Patient condition on transfer: Stable Prescriptions/Referrals Prescriptions/Med Rec: New hydromorphone [Dilaudid] 2 mg tablet 2 mg PO Q6H MDD 4 Qty: 20 0RF ondansetron HCl 4 mg tablet 4 mg PO Q8H 5 Days Qty: 15 0RF No Action amlodipine 10 mg tablet 10 mg PO DAILY metoprolol succinate 200 mg tablet extended release 24 hr 200 mg PO DAILY hydrochlorothiazide 25 mg tablet 25 mg PO QAM docusate sodium [Colace] 100 mg capsule 100 mg PO BID Qty: 60 0RF hydrocodone-acetaminophen 5-325 mg tablet 1 tab PO Q6H MDD 4 PRN (Reason: pain (scale score 7-10)) Qty: 30 0RF hydromorphone [Dilaudid] 2 mg tablet 2 mg PO Q4H MDD 6 PRN (Reason: pain) Qty: 30 0RF metoclopramide HCl [Reglan] 10 mg tablet 10 mg PO Q6H PRN (Reason: nausea and vomiting) Qty: 20 0RF Referrals: Enrico Dang MD [Primary Care Provider, Family Practice] - In 1 week Problem List Clinical Impression: Pancreatic cancer, Chronic pain Patient/Caregiver Discharge Instructions Discharge Activity: activity as tolerated Education Materials: ED Chronic Pain Additional Instructions: We have made a referral to hospice. Please take your pain medication as prescribed. Follow-up with your regular doctor or oncologist in 1 to 2 days. Print Language: Danish Stand Alone Forms: Mary Award Info., Patient Portal Info Letter
[2025-11-07 12:26] LABS: Basophils # (Auto) 0.0 Thou/mm3 (0.0-0.2); Basophils % (Auto) 0 % (0-2.5); Eosinophils # (Auto) 0.0 Thou/mm3 (0.0-0.5); Eosinophils % (Auto) 0 % (0-10); Hematocrit 39.9 % (41.0-53.0); Hemoglobin 13.0 g/dL (13.5-16.0); Immature Granulocytes Auto 0.07 Thou/mm3 (0.00-0.00); Lymphocytes # (Auto) 0.5 Thou/mm3 (1.0-4.8); Lymphocytes % (Auto) 6 % (10-50); Mean Corpuscular HGB Conc 32.6 g/dl (31.0-37.0); Mean Corpuscular Hemoglobin 26.5 pg (25.0-35.0); Mean Corpuscular Volume 81 fL (80-100); Monocytes # (Auto) 0.2 Thou/mm3 (0.0-0.8); Monocytes % (Auto) 3 % (0-12); Neutrophils # (Auto) 7.5 Thou/mm3 (1.8-7.7); Neutrophils % (Auto) 91 % (37-80); Nucleated Red Blood Cell # 0.00 Thou/mm3 (0.00-0.00); Nucleated Red Blood Cell % 0 /100 WBC (0); Platelet Count 191 Thou/mm3 (140-440); RDW Standard Deviation 43.6 fL (35.1-43.9); Red Blood Count 4.91 Miln/mm3 (4.50-5.90); White Blood Count 8.2 Thou/mm3 (3.8-10.6)
[2025-11-07 12:39] LABS: Alanine Aminotransferase 14 U/L (10-49); Albumin, Serum 4.4 gm/dL (3.4-4.8); Albumin/Globulin Ratio 1.2 (1.2-2.2); Alkaline Phosphatase 77 U/L (46-116); Anion Gap 18 (7-16); Aspartate Amino Transferase 20 U/L (0-34); BUN/Creatinine Ratio 22 Ratio (12-20); Bilirubin,Total 0.5 mg/dL (0.3-1.2); Blood Urea Nitrogen 29 mg/dL (9-23); Calcium 9.9 mg/dL (8.3-10.6); Calcium (Corrected) 9.9 mg/dL (8.5-10.1); Carbon Dioxide 27.2 mMol/L (20.0-31.0); Chloride 102 mMol/L (98-107); Creatinine (Component) 1.3 mg/dL (0.6-1.3); Estimated Creatinine Clearance 57.7 mL/min (>60); Globulin 3.8 gm/dL (2.3-3.5); Glucose 121 mg/dL (74-106); Osmolality,Calculated 299 (275-295); Potassium 4.0 mMol/L (3.4-5.1); Sodium 147 mMol/L (136-145); Total Protein 8.2 gm/dL (5.7-8.2); eGFR > 60 See Note
[2025-11-07 13:42] VITALS: BP 147/104; PULSE 104; RESP 20; TEMP 36.8; O2SAT 99
--- NOTE | 2025-11-07 14:15 | PC.NURSE ---
Per Dr. Jesús olson for pt to drink water. Water and ice chips provided to pt
[2025-11-07 15:21] VITALS: BP 152/102; PULSE 109; RESP 18; O2SAT 98
--- NOTE | 2025-11-07 15:26 | PC.CC ---
Addendum entered by Lisa Tatum 11/07/25 15:49: SS follow up note; SS was contacted by Mayank from [facility] and she informed SS they will contact patient with DME delivery time. SS updated patient's nurse, Mildred. Original Note: Lisa SIEGEL was informed by RNMatthew that patient would like to pursue hospice services. SS met with patient and patient's son at bedside to discuss hospices services. Patient reports he does not have a hospice agency preference. SS inquired about agency of the day. Patient agreeable. SS sent out clinicals to [facility], who accepted patient. SS was contacted by Staff at [facility] and they informed SS they would contact SS once they verify Insurance and will contact SS with ETA of DME delivery. SS will stand by for further needs.
[2025-11-07 16:23] VITALS: BP 143/98; PULSE 108; RESP 18; TEMP 37.1; O2SAT 99
== END 2025-11-07 16:24 | disposition home or self-care (01) ==
PROVIDERS: Emergency Provider Family Medicine; PCP Family Medicine
DX: C25.9 Malignant neoplasm of pancreas, unspecified (principal); J90 Pleural effusion, not elsewhere classified; R00.0 Tachycardia, unspecified; I10 Essential (primary) hypertension
CPT/HCPCS: 36415; 71045; 80053; 85025; 93005; 96361; 96374; 96375; 96376; 99285; J1171; J2405; J7030